=== PATIENT | female | born 1950 | race Caucasian/White ===

== ENCOUNTER → 2019-05-27 | Outpatient (CLI) | payer BC, MEDICARE ==
--- NOTE | 2019-05-30 09:17 | Diagnostic Imaging Report ---
EXAMINATION: SP LUMBAR, COMPLETE MIN 4VW, SACRUM X-RAY INDICATION: Back pain COMPARISON: None FINDINGS: AP, lateral, and oblique images of the lumbar spine were obtained. No acute fracture. Vertebral body heights are maintained. Grade 1 anterolisthesis at L4-5. Alignment is otherwise normal. Mild multilevel degenerative changes most notably with facet arthropathy at L4-5 and L5-S1. Nonobstructive bowel gas pattern. No free air. AP and lateral images of the sacrum were obtained. No acute fracture or dislocation. Alignment is anatomic. IMPRESSION: No acute osseous injury. Grade 1 anterolisthesis at L4-5. Mild multilevel degenerative changes. Signed by: Edmund Conrad MD on 05/30/2019 9:13 AM
== END ==
LOC: RAD 16:46
PROVIDERS: ATTEND Internal Medicine
DX: S33.5XXA Sprain of ligaments of lumbar spine, initial encounter (principal)
CPT/HCPCS: 72110; 72220

== ENCOUNTER → 2020-06-26 | Outpatient (CLI) | payer MEDICARE, BC | LOC: MAMMO 13:36 | PROVIDERS: ATTEND Internal Medicine | DX: Z12.31 Encounter for screening mammogram for malignant neoplasm of breast (principal) | CPT/HCPCS: 77067 ==

== ENCOUNTER → 2020-07-12 | Outpatient (CLI) | payer BC, MEDICARE ==
--- NOTE | 2020-07-13 08:16 | Diagnostic Imaging Report ---
#[id number] - USBRELIMLT ULTRASOUND OF THE LEFT BREAST : 07/12/2020 Comparison is made to exams dated: 07/12/2020 mammogram and 06/26/2020 mammogram - [facility]. Color flow and real-time ultrasound were performed on the left breast. There is a possible 8 mm oval mass with a circumscribed margin in the left breast at 8 o'clock middle depth with the long axis parallel to the skin. This oval mass is hypoechoic. IMPRESSION: SUSPICIOUS OF MALIGNANCY - FOLLOW-UP RECOMMENDED The possible 8 mm oval mass in the left breast is at a low suspicion for malignancy. A biopsy is recommended. A phone call was made to the physician's office. The patient has been or will be contacted. YADIEL ANDERSEN M.D., mp/oralia:07/12/2020 16:51:51 Sprinkler Tender: SERGEI CROOK [facility], [facility] letter sent: Biopsy Required Ultrasound BI-RADS: 4a Suspicious abnormality - low suspicion for malignancy
--- NOTE | 2020-07-13 08:16 | Diagnostic Imaging Report ---
#[id number] - MGDXLT #UNILATERAL LEFT DIGITAL DIAGNOSTIC MAMMOGRAM WITH SPOT COMPRESSION: 07/12/2020 Comparison is made to exams dated: 06/26/2020 mammogram and 05/25/2017 mammogram - [facility]. There are scattered fibroglandular elements in the left breast. There is an 8 mm round mass with a circumscribed margin in the left breast at 8 o'clock middle depth. No other significant masses or calcifications are seen in the breast. IMPRESSION: INCOMPLETE: NEEDS ADDITIONAL IMAGING EVALUATION The 8 mm round mass in the left breast is indeterminate. An ultrasound is recommended. YADIEL ANDERSEN M.D., mp/pendarian:07/12/2020 16:49:41 Vice President Of Business Development: Danuat HAUSER(Last)(M), [facility] Mammogram BI-RADS: 0 Indeterminate
== END ==
LOC: MAMMO 13:40
PROVIDERS: ATTEND Internal Medicine
DX: N63.20 Unspecified lump in the left breast, unspecified quadrant (principal)

== ENCOUNTER → 2020-08-02 | Outpatient (CLI) | payer BC, MEDICARE | LOC: US 10:01 | PROVIDERS: ATTEND Internal Medicine | DX: R92.8 Other abnormal and inconclusive findings on diagnostic imaging of breast (principal); N63.20 Unspecified lump in the left breast, unspecified quadrant | CPT/HCPCS: 88305 ==